=== PATIENT | male | born 1930 | race Caucasian/White ===

== ENCOUNTER 2017-03-27 11:35 | Inpatient (IN) | payer MEDICARE, BC ==
[2017-03-27] VITALS (9 sets, daily range): BP systolic 98–117; BP diastolic 55–67
[~2017-03-27] VITALS: Ht 162.6 cm; Wt 70.3 kg
[2017-03-27 12:27] LABS: BASOPHILS % 0.1 % (0.0-2.0); HEMATOCRIT. 36.3 % (42.0-52.0); HEMOGLOBIN. 12.1 g/dL (14.0-18.0); LYMPHOCYTES % 9.7 % (20.0-50.0); MEAN CORPUSCULAR HEMOGLOBIN 30.3 pg (28.0-32.0); MEAN CORPUSCULAR VOLUME 91.2 fL (80.0-94.0); MONOCYTES % 5.9 % (2.0-8.0); NEUTROPHILS % 84.3 % (40.0-76.0); PLATELET 306 x1000/uL (130-400); RED BLOOD CELL COUNT 3.98 mill/uL (4.7-6.1); RED CELL DISTRIBUTION WIDTH 13.9 % (11.6-14.6)
[2017-03-27] MEDS ORDERED: LEVOFLOXACIN 750MG PREMIX 150 ML IV ONE (12:45)
[2017-03-27 12:51] LABS: CARBON DIOXIDE 17 mEq/L (21-32); CHLORIDE 106 mEq/L (98-107); ETHANOL BLOOD < 10 mg/dL
[2017-03-27] MEDS ORDERED: SODIUM CHLORIDE 0.9% 1000ML BAG (SEPSIS BOLUS) IV ONE (13:00)
[2017-03-27 13:07] LABS: AMMONIA 25 uMol/L (<32)
[2017-03-27] MEDS ORDERED: ENOXAPARIN 80MG/0.8ML SYR SUBCUT ONE ×2 (13:15→14:00)
[2017-03-27] MEDS ORDERED: ASPIRIN 81MG TABLET PO ONE (13:15)
[2017-03-27 13:22] LABS: CLARITY URINE CLOUDY (CLEAR); COLOR URINE YELLOW (YELLOW); GLUCOSE URINE TRACE (NEGATIVE); KETONES URINE TRACE (NEGATIVE); LEUKOCYTE ESTERASE URINE 3+ (NEGATIVE); NITRITE URINE NEGATIVE (NEGATIVE); OCCULT BLOOD URINE TRACE (NEGATIVE); PROTEIN URINE 1+ (NEGATIVE); UROBILINOGEN URINE 0.2 E.U./dL (0.2-1.0)
[2017-03-27 13:27] LABS: BG BASE EXCESS -7.7 mmol/L (-2.0-2.0); BG CARBOXYHEMOGLOBIN 0.3 % (0.5-1.5); BG DEOXYHEMOGLOBIN 4.7 % (0.0-5.0); BG FRACTION INSPIRED OXYGEN 21; BG HCO3 ACT 16.8 mmol/L (22.0-26.0); BG METHEMOGLOBIN 0.1 % (0.0-1.5); BG OXYGEN SATURATION 95.3 % (92.0-98.5); BG OXYHEMOGLOBIN 94.9 % (94.0-97.0); BG PCO2 31.3 mmHg (35.0-45.0); BG PH 7.348 (7.350-7.450); BG PO2 79.3 mmHg (75.0-100.0); BG SAMPLE SITE RIGHT BRACHIAL; BG TOTAL HEMOGLOBIN 12.9 g/dL (12.0-18.0); BG VENT MODE ROOM AIR
[2017-03-27 13:42] LABS: *AMPHETAMINES SCREEN URINE NEGATIVE (NEGATIVE); *BARBITURATES SCREEN URINE NEGATIVE (NEGATIVE); *BENZODIAZEPINES SCREEN URINE NEGATIVE (NEGATIVE); *COCAINE SCREEN URINE NEGATIVE (NEGATIVE); CANNABINOID URINE SCREEN NEGATIVE (NEGATIVE); METHADONE URINE SCREEN NEGATIVE (NEGATIVE); OPIATES URINE SCREEN NEGATIVE (NEGATIVE); PHENCYCLIDINE URINE SCREEN NEGATIVE (NEGATIVE)
[2017-03-27] MEDS ORDERED: LISI-604 PO ×2 (13:56→15:58)
[2017-03-27] MEDS ORDERED: SITA1TAB6 PO ×2 (13:57→15:58)
[2017-03-27] MEDS ORDERED: LOVA20TA2 PO ×2 (13:57→15:58)
[2017-03-27] MEDS: IPRATROPIUM/ALBUTEROL 0.5-3(2.5)MG/3ML NEB HHN SCH ×2 (16:41→21:25)
[2017-03-27] MEDS: LISINOPRIL 5MG TABLET PO SCH (17:00)
[2017-03-27] MEDS ORDERED: DEXTROSE 50% WATER 50ML SYRINGE IV PRN (17:15)
[2017-03-27] MEDS: BLOOD SUGAR DIAGNOSTIC STRIP TEST SCH ×2 (17:15→22:01)
[2017-03-27] MEDS: INSULIN LISPRO 100 UNITS/ML SUBCUT SCH ×2 (17:20→22:00)
[2017-03-27] MEDS ORDERED: ACETAMINOPHEN 325MG TABLET PO PRN (17:45)
[2017-03-27] MEDS ORDERED: CLONIDINE 0.1MG TABLET PO PRN (17:45)
[2017-03-27] MEDS ORDERED: IPRATROPIUM/ALBUTEROL 0.5-3(2.5)MG/3ML NEB INH PRN (17:45)
[2017-03-27] MEDS ORDERED: ONDANSETRON HCL 4MG/2ML VIAL IV PRN (17:45)
[2017-03-27] MEDS: PIPERACILLIN/TAZ 3.375G PREMIX 50 ML IV SCH (17:47)
[2017-03-27] MEDS ORDERED: VANCOMYCIN 1500MG in DEXTROSE 5% WATER 250ML IV SCH (18:00)
[2017-03-27] MEDS ORDERED: IPRATROPIUM/ALBUTEROL 0.5-3(2.5)MG/3ML NEB HHN ONE (18:00)
[2017-03-27] MEDS: METHYLPREDNISOLONE SOD SUCC 40 MG/ML VIAL IV SCH (22:08)
[2017-03-27] MEDS: METOPROLOL TARTRATE 25MG TABLET PO SCH (22:08)
[2017-03-28] VITALS (15 sets, daily range): BP systolic 100–124; BP diastolic 46–66
[2017-03-28] MEDS: IPRATROPIUM/ALBUTEROL 0.5-3(2.5)MG/3ML NEB HHN SCH ×6 (00:32→20:09)
[2017-03-28] MEDS: PIPERACILLIN/TAZ 3.375G PREMIX 50 ML IV SCH ×3 (01:17→22:06)
[2017-03-28] MEDS: BLOOD SUGAR DIAGNOSTIC STRIP TEST SCH ×4 (06:00→21:00)
[2017-03-28 06:01] LABS: HEMATOCRIT. 32.3 % (42.0-52.0); HEMOGLOBIN. 10.7 g/dL (14.0-18.0); MEAN CORPUSCULAR HEMOGLOBIN 30.4 pg (28.0-32.0); MEAN CORPUSCULAR VOLUME 91.7 fL (80.0-94.0); MEAN PLATELET VOLUME 8.5 fl (7.4-10.4); PLATELET 253 x1000/uL (130-400); RED BLOOD CELL COUNT 3.53 mill/uL (4.7-6.1)
[2017-03-28 06:50] LABS: CARBON DIOXIDE 17 mEq/L (21-32); CHLORIDE 106 mEq/L (98-107)
[2017-03-28 07:07] LABS: CREATINE KINASE MB FRACTION 31.8 ng/mL (0.5-3.6); HDL CHOLESTEROL 27 mg/dL (40-59); LDL CHOLESTEROL 80 mg/dL (5-100); T4 FREE 1.08 ng/dL (0.76-1.46)
[2017-03-28] MEDS: METOPROLOL TARTRATE 25MG TABLET PO SCH ×2 (08:03→22:03)
[2017-03-28] MEDS: METHYLPREDNISOLONE SOD SUCC 40 MG/ML VIAL IV SCH ×2 (08:04→22:03)
[2017-03-28] MEDS: LISINOPRIL 5MG TABLET PO SCH ×2 (08:04→18:20)
[2017-03-28] MEDS: INSULIN LISPRO 100 UNITS/ML SUBCUT SCH ×4 (08:05→22:02)
[2017-03-28] MEDS ORDERED: ASPIRIN 81MG TABLET PO SCH (09:00)
[2017-03-28] MEDS ORDERED: ENOXAPARIN 80MG/0.8ML SYR SUBCUT NR (10:15)
[2017-03-28] MEDS ORDERED: IOHEXOL-300 100 ML BOTTLE ONE (11:14)
[2017-03-28] MEDS ORDERED: SODIUM CHLORIDE 0.9% 10ML VIAL ONE (11:14)
[2017-03-28] MEDS: VANCOMYCIN 1 G PREMIX 200 ML IV SCH (12:01)
[2017-03-28] MEDS ORDERED: DIATR MEGLU/DIATRIZOATE SOLN 30ML PO SCH (16:40)
[2017-03-28 17:52] LABS: PLATELET ESTIMATE NORMAL
[2017-03-28] MEDS ORDERED: VANCOMYCIN 1250MG in DEXTROSE 5% WATER 250ML IV SCH (18:00)
[2017-03-28] MEDS: SIMETHICONE 80MG TABLET CHEW PO SCH ×2 (18:20→22:03)
[2017-03-29] VITALS (12 sets, daily range): BP systolic 97–145; BP diastolic 49–86
[2017-03-29] MEDS: IPRATROPIUM/ALBUTEROL 0.5-3(2.5)MG/3ML NEB HHN SCH ×7 (00:47→23:43)
[2017-03-29 06:50] LABS: HEMOGLOBIN. 11.1 g/dL (14.0-18.0); MEAN CORPUSCULAR HEMOGLOBIN 30.8 pg (28.0-32.0); MEAN CORPUSCULAR VOLUME 91.5 fL (80.0-94.0); MEAN PLATELET VOLUME 8.8 fl (7.4-10.4); PLATELET 268 x1000/uL (130-400); RED BLOOD CELL COUNT 3.61 mill/uL (4.7-6.1); RED CELL DISTRIBUTION WIDTH 14.1 % (11.6-14.6)
[2017-03-29 06:54] LABS: PROTHROMBIN TIME 10.8 sec (9.4-11.6)
[2017-03-29] MEDS: BLOOD SUGAR DIAGNOSTIC STRIP TEST SCH ×4 (07:08→21:37)
[2017-03-29] MEDS: VANCOMYCIN 1 G PREMIX 200 ML IV SCH (07:08)
[2017-03-29] MEDS: PIPERACILLIN/TAZ 3.375G PREMIX 50 ML IV SCH ×3 (07:16→22:58)
[2017-03-29 07:25] LABS: CARBON DIOXIDE 21 mEq/L (21-32); CHLORIDE 105 mEq/L (98-107)
[2017-03-29] MEDS: SIMETHICONE 80MG TABLET CHEW PO SCH ×4 (07:50→21:37)
[2017-03-29] MEDS: INSULIN LISPRO 100 UNITS/ML SUBCUT SCH ×4 (07:51→21:36)
[2017-03-29] MEDS ORDERED: DIATR MEGLU/DIATRIZOATE SOLN 30ML PO NR (08:15)
[2017-03-29] MEDS: METHYLPREDNISOLONE SOD SUCC 40 MG/ML VIAL IV SCH ×2 (08:15→21:48)
[2017-03-29] MEDS: METOPROLOL TARTRATE 25MG TABLET PO SCH (09:00)
[2017-03-29] MEDS ORDERED: DIATR MEGLU/DIATRIZOATE SOLN 30ML PO SCH (09:00)
[2017-03-29] MEDS: LISINOPRIL 5MG TABLET PO SCH (09:00)
[2017-03-29] MEDS ORDERED: COLL30OI TP (11:50)
[2017-03-29 13:46] LABS: PLATELET ESTIMATE NORMAL
[2017-03-29] MEDS: FUROSEMIDE 20MG TABLET PO SCH (21:37)
[2017-03-29] MEDS: CARVEDILOL 3.125 MG TABLET PO SCH (21:37)
[2017-03-29] MEDS: LISINOPRIL 2.5MG TABLET PO SCH (21:37)
[2017-03-30] VITALS (12 sets, daily range): BP systolic 95–141; BP diastolic 53–83
[2017-03-30] MEDS: VANCOMYCIN 1 G PREMIX 200 ML IV SCH ×2 (00:58→17:02)
[2017-03-30] MEDS: IPRATROPIUM/ALBUTEROL 0.5-3(2.5)MG/3ML NEB HHN SCH ×5 (03:22→20:42)
[2017-03-30] MEDS: PIPERACILLIN/TAZ 3.375G PREMIX 50 ML IV SCH (06:05)
[2017-03-30] MEDS: BLOOD SUGAR DIAGNOSTIC STRIP TEST SCH ×4 (06:05→20:44)
[2017-03-30 06:13] LABS: HEMATOCRIT. 33.8 % (42.0-52.0); HEMOGLOBIN. 11.4 g/dL (14.0-18.0); MEAN CORPUSCULAR HEMOGLOBIN 30.8 pg (28.0-32.0); MEAN CORPUSCULAR VOLUME 90.9 fL (80.0-94.0); MEAN PLATELET VOLUME 8.8 fl (7.4-10.4); PLATELET 275 x1000/uL (130-400); RED BLOOD CELL COUNT 3.72 mill/uL (4.7-6.1); RED CELL DISTRIBUTION WIDTH 13.6 % (11.6-14.6)
[2017-03-30 06:16] LABS: CARBON DIOXIDE 23 mEq/L (21-32); CHLORIDE 101 mEq/L (98-107)
[2017-03-30] MEDS: INSULIN LISPRO 100 UNITS/ML SUBCUT SCH ×4 (08:14→20:36)
[2017-03-30] MEDS: SIMETHICONE 80MG TABLET CHEW PO SCH ×4 (08:16→20:34)
[2017-03-30] MEDS: METHYLPREDNISOLONE SOD SUCC 40 MG/ML VIAL IV SCH ×2 (08:24→20:35)
[2017-03-30] MEDS: LISINOPRIL 2.5MG TABLET PO SCH ×2 (08:25→20:35)
[2017-03-30] MEDS: CARVEDILOL 3.125 MG TABLET PO SCH ×2 (08:26→20:34)
[2017-03-30] MEDS: FUROSEMIDE 20MG TABLET PO SCH ×2 (08:26→20:35)
[2017-03-30] MEDS: MEROPENEM 1000MG in NORMAL SALINE 100ML IV SCH ×2 (12:04→20:34)
[2017-03-30 13:14] LABS: PLATELET ESTIMATE NORMAL
[2017-03-30] MEDS ORDERED: VANCOMYCIN 1250MG in DEXTROSE 5% WATER 250ML IV NR (21:00)
[2017-03-31] VITALS (13 sets, daily range): BP systolic 102–149; BP diastolic 52–74
[2017-03-31] MEDS: IPRATROPIUM/ALBUTEROL 0.5-3(2.5)MG/3ML NEB HHN SCH ×7 (01:01→23:25)
[2017-03-31] MEDS: MEROPENEM 1000MG in NORMAL SALINE 100ML IV SCH ×3 (04:36→20:19)
[2017-03-31] MEDS: BLOOD SUGAR DIAGNOSTIC STRIP TEST SCH ×4 (06:53→21:00)
[2017-03-31] MEDS: SIMETHICONE 80MG TABLET CHEW PO SCH ×4 (08:30→21:51)
[2017-03-31] MEDS: INSULIN LISPRO 100 UNITS/ML SUBCUT SCH ×4 (08:30→21:52)
[2017-03-31] MEDS: FUROSEMIDE 20MG TABLET PO SCH ×2 (08:31→21:51)
[2017-03-31] MEDS: LISINOPRIL 20MG TABLET PO SCH ×2 (08:31→21:50)
[2017-03-31] MEDS: CARVEDILOL 3.125 MG TABLET PO SCH ×2 (08:32→21:51)
[2017-03-31] MEDS: METHYLPREDNISOLONE SOD SUCC 40 MG/ML VIAL IV SCH (08:32)
[2017-03-31] MEDS ORDERED: LISINOPRIL 20MG TABLET PO SCH (09:00)
[2017-03-31] MEDS ORDERED: REGADENOSON 0.4 MG/5 ML IV NR (10:00)
[2017-03-31] MEDS ORDERED: VANCOMYCIN 750 MG PREMIX 150 ML IV SCH (11:00)
[2017-03-31] MEDS: VANCOMYCIN 1250MG in DEXTROSE 5% WATER 250ML IV SCH (17:06)
[2017-04-01] VITALS (14 sets, daily range): BP systolic 102–157; BP diastolic 46–74
[2017-04-01] MEDS: IPRATROPIUM/ALBUTEROL 0.5-3(2.5)MG/3ML NEB HHN SCH ×4 (03:30→21:18)
[2017-04-01] MEDS: MEROPENEM 1000MG in NORMAL SALINE 100ML IV SCH ×3 (03:31→20:53)
[2017-04-01] MEDS: BLOOD SUGAR DIAGNOSTIC STRIP TEST SCH ×4 (06:44→21:00)
[2017-04-01 06:55] LABS: BASOPHILS % 0.3 % (0.0-2.0); EOSINOPHILS % 2.8 % (0.0-5.0); HEMATOCRIT. 37.3 % (42.0-52.0); HEMOGLOBIN. 12.6 g/dL (14.0-18.0); LYMPHOCYTES % 16.4 % (20.0-50.0); MEAN CORPUSCULAR HEMOGLOBIN 30.4 pg (28.0-32.0); MEAN CORPUSCULAR VOLUME 90.1 fL (80.0-94.0); MEAN PLATELET VOLUME 8.6 fl (7.4-10.4); MONOCYTES % 10.5 % (2.0-8.0); PLATELET 318 x1000/uL (130-400); RED BLOOD CELL COUNT 4.14 mill/uL (4.7-6.1); RED CELL DISTRIBUTION WIDTH 14.1 % (11.6-14.6)
[2017-04-01] MEDS: INSULIN LISPRO 100 UNITS/ML SUBCUT SCH ×4 (07:20→21:26)
[2017-04-01] MEDS: CARVEDILOL 3.125 MG TABLET PO SCH (08:19)
[2017-04-01] MEDS: LISINOPRIL 20MG TABLET PO SCH ×2 (08:19→21:24)
[2017-04-01] MEDS: SIMETHICONE 80MG TABLET CHEW PO SCH ×4 (08:19→21:24)
[2017-04-01] MEDS: FUROSEMIDE 20MG TABLET PO SCH ×2 (08:20→21:25)
[2017-04-01 08:31] LABS: CARBON DIOXIDE 21 mEq/L (21-32); CHLORIDE 102 mEq/L (98-107)
[2017-04-01] MEDS ORDERED: PREDNISONE 20MG TABLET PO SCH (09:00)
[2017-04-01] MEDS ORDERED: REGADENOSON 0.4 MG/5 ML IV ONE (11:40)
[2017-04-01] MEDS: VANCOMYCIN 1250MG in DEXTROSE 5% WATER 250ML IV SCH (14:22)
[2017-04-01] MEDS ORDERED: CARVEDILOL 6.25 MG TABLET PO SCH (16:39)
== END 2017-04-01 22:26 | DRG 871 ==
LOC: ER 12:58 → 3WST 13:22 → ENRESERV 14:33
PROVIDERS: ADMIT Hospitalist; ATTEND Hospitalist
DX: A41.59 Other Gram-negative sepsis (principal); G93.40 Encephalopathy, unspecified; I21.4 Non-ST elevation (NSTEMI) myocardial infarction; J96.00 Acute respiratory failure, unspecified whether with hypoxia or hypercapnia; I11.0 Hypertensive heart disease with heart failure; J18.9 Pneumonia, unspecified organism; J44.0 Chronic obstructive pulmonary disease with (acute) lower respiratory infection; K86.1 Other chronic pancreatitis; F03.90 Unspecified dementia, unspecified severity, without behavioral disturbance, psychotic disturbance, mood disturbance, and anxiety; I50.9 Heart failure, unspecified; J44.1 Chronic obstructive pulmonary disease with (acute) exacerbation; N39.0 Urinary tract infection, site not specified; R65.20 Severe sepsis without septic shock; E11.40 Type 2 diabetes mellitus with diabetic neuropathy, unspecified; D64.9 Anemia, unspecified; E11.65 Type 2 diabetes mellitus with hyperglycemia; E78.5 Hyperlipidemia, unspecified; I25.5 Ischemic cardiomyopathy; K57.30 Diverticulosis of large intestine without perforation or abscess without bleeding; K80.20 Calculus of gallbladder without cholecystitis without obstruction; K76.89 Other specified diseases of liver; Z79.899 Other long term (current) drug therapy; Z79.84 Long term (current) use of oral hypoglycemic drugs; Z86.718 Personal history of other venous thrombosis and embolism
CPT/HCPCS: 36415; 36600; 70450; 71010; 74176; 74177; 76705; 78452; 80048; 80053; 80061; 80076; 80202; 80305; 80307; 80329; 81001; 82105; 82140; 82375; 82378; 82550; 82553; 82805; 82962; 83036; 83605; 83690; 83735; 83880; 84439; 84443; 84484; 85025; 85379; 85610; 85730; 86301; 87040; 87077; 87086; 87186; 92610; 93005; 93017; 93306; 93970; 94640; 94664; 96365; 96372; 96375; 99291; A4216; A9500; G0482; J1650; J1815; J1956; J2185; J2543; J2785; J2920; J3370; J7030; J7040; J7060; J7512; J7620; Q9963; Q9967

== ENCOUNTER 2017-04-15 08:39 | Day surgery (SDC) | payer MEDICARE, BC ==
[~2017-04-15] VITALS: Ht 167.6 cm; Wt 72.6 kg
[2017-04-15] VITALS (8 sets, daily range): BP systolic 115–137; BP diastolic 56–73
[~2017-04-15 08:39] MED LIST: COLL30OI TP; LISI-604 PO; LOVA20TA2 PO; SITA1TAB6 PO
[2017-04-15] MEDS ORDERED: FENTANYL CITRATE/PF 50MCG/ML 2ML VIAL ONE (09:12)
[2017-04-15] MEDS ORDERED: SODIUM BICARBONATE 4% (2.4MEQ) 5ML VIAL IV ONE (09:29)
[2017-04-15 14:13] LABS: HEMATOCRIT 39.7 % (42.0-52.0); HEMOGLOBIN 13.2 g/dL (14.0-18.0)
== END 2017-04-15 14:30 | disposition home or self-care (01) ==
LOC: RAD 08:39
PROVIDERS: ATTEND Hospitalist
DX: R16.0 Hepatomegaly, not elsewhere classified (principal)
CPT/HCPCS: 36415; 47000; 71010; 76942; 85014; 85018; 88307; J3490; J3010